=== PATIENT | male | born 1960 | race African-American/Black ===

== ENCOUNTER 2021-12-20 15:15 | Emergency (ER) | payer MEDICARE ==
[~2021-12-20] VITALS: Ht 182.9 cm; Wt 68.0 kg
[2021-12-20] MEDS ORDERED: IBUPROFEN 600MG TABLET PO STA (23:12)
[2021-12-20] MEDS ORDERED: ACETAMINOPHEN 325MG TABLET PO STA (23:12)
[2021-12-20 23:35] LABS: CHLORIDE 104 mEq/L (98-107)
[2021-12-20 23:56] LABS: CLARITY URINE CLEAR (CLEAR); COLOR URINE YELLOW (YELLOW); KETONES URINE TRACE (NEGATIVE); LEUKOCYTE ESTERASE URINE NEGATIVE (NEGATIVE); NITRITE URINE NEGATIVE (NEGATIVE); OCCULT BLOOD URINE NEGATIVE (NEGATIVE); PROTEIN URINE 1+ (NEGATIVE); SPECIFIC GRAVITY URINE 1.027 (1.005-1.030)
[2021-12-20 23:59] LABS: BASOPHILS % 0.5 % (0.0-2.0); EOSINOPHILS % 0.3 % (0.0-5.0); HEMATOCRIT. 37.1 % (42.0-52.0); HEMOGLOBIN. 12.2 g/dL (14.0-18.0); LYMPHOCYTES % 15.8 % (20.0-50.0); MEAN CORPUSCULAR VOLUME 81.9 fL (80.0-94.0); MEAN PLATELET VOLUME 8.8 fl (7.4-10.4); MONOCYTES % 8.4 % (2.0-8.0); PLATELET 246 x1000/uL (130-400); RED BLOOD CELL COUNT 4.52 mill/uL (4.7-6.1); RED CELL DISTRIBUTION WIDTH 15.2 % (11.6-14.6)
[2021-12-21] MEDS ORDERED: SENN-257 MT (01:17)
[2021-12-21] MEDS ORDERED: DOCU-138 MT (01:17)
[2021-12-21] MEDS ORDERED: GABA100C MT (01:17)
[2021-12-21] MEDS ORDERED: IBUP-2029 MT (01:17)
[2021-12-21 01:25] VITALS: BP 118/78
== END 2021-12-21 01:34 | disposition home or self-care (01) ==
LOC: ER 15:15
DX: C80.1 Malignant (primary) neoplasm, unspecified (principal); C79.51 Secondary malignant neoplasm of bone; M54.50 Low back pain, unspecified; F31.9 Bipolar disorder, unspecified; F20.9 Schizophrenia, unspecified; F43.10 Post-traumatic stress disorder, unspecified; F17.210 Nicotine dependence, cigarettes, uncomplicated
CPT/HCPCS: 36415; 74176; 80053; 81003; 85025; 99284